=== PATIENT | male | born 1965 | race Caucasian/White ===

== ENCOUNTER 2018-06-17 16:59 | Observation (INO) ==
[2018-06-17] MEDS ORDERED: Naloxone 0.4 MG/ML INJ IVP PRN (19:31)
[2018-06-17] MEDS ORDERED: Acetaminophen 325 MG TABLET PO PRN (19:41)
--- NOTE | 2018-06-17 20:05 | Internal Med History&Physical ---
Date of Encounter: 06/17/18 Time of Encounter: 19:30 Internal Medicine - H&P: HPI Chief complaint: Chest pain and weakness Admitted From: Hospital to Hospital Transfer Plans for Post Hospital Care: Home History of present illness: Mr. LITTLEJOHN is a 53 year old male with hx of paroxysmal atrial fib s/p ablation x2 presented to [facility] ED with lower chest pain and weakness. He was evaluated and transferrred to [place] for further evaluation. Mr Littlejohn said he developed lower R chest discomfort and pain down his trunk and body. He said his boss told him he appeared short of breath. He presented to ED and was found to be in rapid a fib. He spontaneously converted. His daughter stated that he was very weak and had slurred speech at that time and for about an hour after. He reports he could not remember the names of his meds and that is unusual. He feels essentially back to baseline at this time. He did not have associated nausea or diaphoresis. He is compliant with all his meds. He has hx of parox a fib. He has had 2 ablations and had an OK post one of the ablations. He follows with cardiology at [facility] and had a cath with some blockage - daughter says 60%. He also has a loop recorder in place for last 2 years. Past Med Surg Social Fam HX - Past Medical History Source: patient Medical history: atrial fibrillation, hypertension, myocardial infarction Psychiatric history: no psych history - Past Surgical History Additional surgical history: right elbow sx - Social History Smoking Status: Current every day smoker Packs per day: 1 Smokeless Tobacco Status: No Alcohol use: none Drug use: none Current living situation: Home - Independent Activity Level: Independent ambulation - Family History Mother Hx Family Endocrine Disorder: Yes (Diabetes) Grandfather Hx Family Cardiac Disorders: Yes All Systems PM: A 10-system review of systems was performed and is negative for pertinent findings except as documented above in the HPI. - Constitutional Constitutional: fatigue, lethargy - EENT Eyes: no change in vision, no loss of vision Ears: no decreased hearing, no ear pain Nose, mouth and throat: dry mouth, no mouth pain, no sinus pain - Cardiovascular Cardiovascular ROS IM: chest pain, dyspnea, lightheadedness, palpitations, no dyspnea on exertion, no edema, no paroxysmal nocturnal dyspnea - Respiratory Respiratory: cough (Chronic cough), dyspnea, no pain with cough - Gastrointestinal Gastrointestinal: no abdominal pain, no diarrhea, no nausea, no vomiting - Genitourinary Genitourinary ROS male: no dysuria, no nocturia, no urinary hesitancy - Musculoskeletal Musculoskeletal ROS IM: no arthralgias, no muscle cramps, no numbness - Integumentary Integumentary IM: no erythema, no rash - Neurological Neurological ROS: abnormal speech, confusion, weakness (Diffuse), no dizziness, no numbness - Endocrine Endocrine IM: no cold intolerance, no flushing - Hematologic/Lymphatic Hematologic/Lymphatic: no easy bleeding - Allergic/Immunologic Allergic/Immunologic: no tongue swelling, no wheezing - Constitutional Vitals: Temp Pulse Resp BP Pulse Ox 97.7 F 87 16 112/66 95 06/17/18 19:05 06/17/18 19:05 06/17/18 19:05 06/17/18 19:05 06/17/18 19:05 General appearance: Present: A&O X 3, pleasant, answers questions appropriately Exam: See below - Head Head exam: Present: atraumatic, normocephalic - Eye Eye exam: Present: EOMI, PERRL, conjuntiva pink - ENT ENT exam: Present: mucous membranes moist, normal exam - Neck Neck exam general surgery: Present: normal inspection. Absent: nuchal rigidity - Respiratory Respiratory exam: Present: CTAB. Absent: rales, rhonchi, wheezes - Cardiovascular Cardiovascular exam: Present: RRR. Absent: systolic murmur, tachycardia - GI/Abdominal GI/Abdominal exam: Present: normal bowel sounds, soft. Absent: mass, pulsatile mass, tenderness - Extremities Exam Extremities exam: Present: warm. Absent: pedal edema, tenderness - Neurological Exam Neurological exam: Present: alert, oriented X3, no focal deficits - Skin Skin exam: Present: dry, warm - Assessment and plan (1) Chest pain Current Visit: Yes Status: Acute Assessment and plan: Pt with very atypical chest pain. Currently asymptomatic. Daughter is concerned he is having another event. Obtain records of prior cath from [facility]. Serial troponin. Check d dimer I have placed cardiology consult due to family and patient concern. Qualifiers: Chest pain type: other chest pain Qualified Code(s): R07.89 - Other chest pain; R07.8 - Other chest pain (2) Paroxysmal A-fib Current Visit: Yes Status: Chronic Assessment and plan: Pt currently is in sinus rhythm. Will keep on monitor and repeat EKG at this time. (3) Slurred speech Current Visit: Yes Status: Acute Assessment and plan: Pt had weakness and slurred speech with rapid a fib. He does take Xarelto. CT of head ordered tonight. MRI tomorrow due to family concern of CVA. (4) HTN (hypertension) Current Visit: Yes Status: Chronic Assessment and plan: Currently controlled. Continue home meds. Qualifiers: Hypertension type: essential hypertension Qualified Code(s): I10 - Essential (primary) hypertension (5) Tobacco abuse Current Visit: Yes Status: Chronic Assessment and plan: Cessation counselling. He does not want nicotine patch. - Time Spent With Patient Total time spent is greater than 50% in coordination of care (as documented) at patient's floor/unit and/or counseling patient:
[2018-06-18 04:25] LABS: Basophils % 0.5 %; Eosinophils # 0.4 K/mcL (0.0-0.6); Eosinophils % 4.5 %; Hematocrit 34.9 % (37.5-50.1); Immature Granulocytes % 0.2 % (0-4); Lymphocytes % 45.7 %; Mean Corpuscular HGB Conc 31.5 g/dL (31.6-35.5); Mean Corpuscular Hemoglobin 27.2 pg (28.0-33.3); Mean Corpuscular Volume 86.4 fL (83.0-100.0); Mean Platelet Volume 9.8 fL (9.4-12.4); Monocytes # 1.1 K/mcL (0.0-1.3); Monocytes % 12.9 %; Neutrophils # 3.2 K/mcL (1.6-8.9); Platelet Count 333 K/mcL (140-400); Red Blood Count 4.04 M/mcL (4.19-5.50); Red Cell Distribution Width 15.3 % (11.5-14.5); Segmented Neutrophils % 36.2 %
[2018-06-18 04:45] LABS: Chol/HDL Ratio 2.9 (0-4.9)
[2018-06-18 04:46] LABS: BUN/Creatinine Ratio 26 (6-26); Blood Urea Nitrogen 19 mg/dL (6-20); Calcium 9.5 mg/dL (8.6-10.3); Carbon Dioxide 23 mEq/L (23-29); Chloride 106 mEq/L (98-107); Glucose 95 mg/dL (70-105); Osmolality,Calculated 284 (280-300); Potassium 4.4 mEq/L (3.5-5.1); Sodium 136 mEq/L (136-145); eGFR For Non-African Americans > 60 (> 60)
[2018-06-18] MEDS ORDERED: Metoprolol XL (24 HR) Succ 25 MG TAB.ER.24H PO SCH (09:00)
[2018-06-18] MEDS: Aspirin Enteric Coated 81 MG Tablet PO SCH (09:34)
--- NOTE | 2018-06-18 09:42 | Internal Med Progress Note ---
<Ayan Bourne W - Last Filed: 06/18/18 15:13> Hospitalist Progress Note - Encounter Date of Encounter: 06/18/18 Time of Encounter: 09:37 - Subjective Interval History: Patient reports significant improvement today. States he is back to baseline. Denies any chest pain or discomfort. Denies any shortness of breath. States he is no longer weak, no speech deficits no longer has any confusion. CT scan no acute intracranial abnormality. Currently in sinus rhythm. Normal d-dimer and normal troponin. - Exam Vitals: Temp Pulse Resp BP Pulse Ox 97.6 F 87 15 116/68 93 06/18/18 06:49 06/18/18 06:49 06/18/18 04:16 06/18/18 06:49 06/18/18 06:49 Exam: Gen.: NAD, alert and oriented 3 Head: Atraumatic normocephalic Eyes: PERRLA, EOMI Cardio: Regular rate and rhythm positive S1 positive S2, no murmurs rubs or gallops Pulmonary: CTA bilateral no wheezes rales or rhonchi MSK: Normal strength throughout, normal posture Neuro: Cranial nerves II through XII intact no focal deficits - Assessment and Plan (1) Paroxysmal A-fib Status: Chronic Assessment and Plan: - Pt currently is in sinus rhythm. - Metoprolol at home - Cardiology consulted appreciate recs. Plan - Metoprolol increased to 25 mg per cardiology - WILLIAM ordered (2) Chest pain Status: Acute Assessment and Plan: -Pt with atypical chest pain. - Currently asymptomatic. - Troponin mildly elevated at [facility] 0.08 ([facility] cut off 0.056), troponins negative x3 [facility]. - D-Dimer normal - Cardiology consulted appreciate recs (3) HTN (hypertension) Status: Chronic Assessment and Plan: Currently controlled. Metoprolol increased (4) Tobacco abuse Status: Chronic Assessment and Plan: Cessation counselling. He does not want nicotine patch. (5) Slurred speech Status: Resolved Assessment and Plan: Pt had weakness and slurred speech with rapid a fib. He does take Xarelto CT of head found no acute intercranial abnormality MRI no acute abnormalities - Time Spent with Patient Total time spent is greater than 50% in coordination of care (as documented) at patient's floor/unit and/or counseling patient: Internal Medicine: Result - Labs CBC & Chem 7: 06/18/18 03:38 06/18/18 03:38 Labs: Short CBC 06/18/18 Range/Units 03:38 WBC 8.8 (4.3-11.1) K/mcL Hgb 11.0 L (12.9-16.9) g/dL Hct 34.9 L (37.5-50.1) % Plt Count 333 (140-400) K/mcL Neutrophils # 3.2 (1.6-8.9) K/mcL BMP 06/18/18 03:38 Sodium 136 Potassium 4.4 Chloride 106 Carbon Dioxide 23 BUN 19 Creatinine 0.72 Glucose 95 Calcium 9.5 Cardiac Enzymes 06/17/18 06/18/18 06/18/18 Range/Units 20:57 03:38 08:48 Troponin I 0.03 < 0.03 < 0.03 (< 0.04) ng/mL - ABG Interpretation ABG results: PT/INR, D-dimer D-Dimer 258 ng/mLFEU (0-500) 06/17/18 20:57 - Impressions Impressions Head CT 06/18/18 19:38 IMPRESSION: 1.No acute intracranial abnormality. D/ / Carlyle Nix MD / Carlyle Nix MD Interpreting Provider: Carlyle Nix MD Consult Discharge Plan - Plan Instructions: Metoprolol (By mouth), Atrial Fibrillation (DC), How to Stop Smoking (DC) Referrals: NONE,PCP [Primary Care Provider] - (spoke with patient and he has a case management assistant already at [facility] and already has an appointment set up with them and patient stated he is getting a PCP set up at [facility] as well did not want me to help him) Prescriptions: Metoprolol XL (24 HR) Succ [Toprol Xl] 25 mg PO DAILY 30 Days #30 tab.er.24h <Tray Kessler - Last Filed: 06/19/18 14:21> Hospitalist Progress Note - Encounter Date of Encounter: 06/18/18 - Exam Vitals: Temp Pulse Resp BP Pulse Ox 97.5 F L 84 16 119/72 93 06/19/18 08:31 18 08:31 06/19/18 08:31 06/19/18 08:31 06/19/18 08:31 - Assessment and Plan (1) Paroxysmal A-fib Status: Chronic (2) Chest pain Status: Resolved (3) HTN (hypertension) Status: Chronic (4) Tobacco abuse Status: Chronic (5) Slurred speech Status: Resolved - Time Spent with Patient Total time spent is greater than 50% in coordination of care (as documented) at patient's floor/unit and/or counseling patient: 25 - 35 minutes Plan of Care Discussed with: patient Internal Medicine: Result - Labs CBC & Chem 7: 06/18/18 03:38 06/18/18 03:38 - ABG Interpretation ABG results: PT/INR, D-dimer D-Dimer 258 ng/mLFEU (0-500) 06/17/18 20:57 - Impressions Impressions Echocardiogram 06/19/18 07:00 Impressions: LVEF 55%. Normal left ventricular diastolic function. Normal right ventricular structure and function. No significant valvular dysfunction. No pulmonary hypertension. Left Ventricular Wall Motion: Rest Echo Findings All wall segments showed normal motion. Findings: Study Quality * Technically adequate exam. ECG Findings * Normal sinus rhythm. Left Ventricle * LVEF 55%. * Normal LV chamber size, wall thickness and function. * Normal left ventricular diastolic function. Right Ventricle * Normal right ventricular structure and function. Left Atrium * Normal left atrial size. Right Atrium * Normal right atrial size. Mitral Valve * Normal mitral valve structure. * No mitral stenosis. * Trace mitral regurgitation. Aortic Valve * No aortic regurgitation. * Aortic valve not well visualized. * No aortic stenosis. Tricuspid Valve * Tricuspid valve not well visualized. * Trace tricuspid regurgitation. * Estimated RA pressure is 8 mmHg. Pulmonic Valve * Pulmonic valve is not well visualized. * No pulmonic stenosis. * No pulmonic regurgitation. Pulmonary Artery * Pulmonary artery not well visualized. Aorta * Normally sized aortic root. Pericardium * There is no pericardial effusion present. Interatrial Septum * No evidence of PFO by color Doppler. IVC * The IVC is not dilated. * < 50% respiratory change. - VTE Reasons for not Prescribing Prophylaxis: Not indicated-Anticoagulated or INR therapeutic Deep Vein Thrombosis/Pulmonary Embolism Present on Admission: No - Attending Attestation I SAW/EXAMINED AND EVALUATED THE PATIENT WITH THE RESIDENT ON THE DAY OF VISIT. THE CASE WAS DISCUSSED WITH HIM/HER. I AGREE WITH THE FINDINGS/PLAN, DOCUMENTED IN THE RESIDENT'S NOTE. THE DOCUMENT WAS EDITED BY ME TO CORRECT ERRORS AND ADD MISSING DATA. <Ayan Bourne W - Last Filed: 06/18/18 15:13> (2) Chest pain Qualifiers: Chest pain type: other chest pain Qualified Code(s): R07.89 - Other chest pain; R07.8 - Other chest pain (3) HTN (hypertension) Qualifiers: Hypertension type: essential hypertension Qualified Code(s): I10 - Essential (primary) hypertension <Tray Kessler M - Last Filed: 06/19/18 14:21> (2) Chest pain Qualifiers: Chest pain type: other chest pain Qualified Code(s): R07.89 - Other chest pain; R07.8 - Other chest pain (3) HTN (hypertension) Qualifiers: Hypertension type: essential hypertension Qualified Code(s): I10 - Essential (primary) hypertension
--- NOTE | 2018-06-18 10:04 | Cardiology Consult Note ---
Date of Encounter: 06/18/18 Time of Encounter: 08:45 Assessment and Plan (1) Paroxysmal A-fib Current Visit: Yes Status: Chronic Per cardiology" -Known PAF s/p 2 ablations at [facility]. -Has LOOP recorder, interrogated. -On toprol and xarelto at home. -Per patient, was a.fib RVR at [facility]. -ECG from [facility] reviewed with ST, HR 129. -Currently SR, HR controlled. -LOOP recorder reviewed with and Dr.[facility] Escobar, per suspected to be a.fib with RVR. -Will increase toprol to 25mg daily. -Pending TTE, will resume xarelto. (2) Chest pain Current Visit: Yes Status: Acute Per cardiology: -Reported chest pain at work yesterday. -States was non-exertional and unable to describe further due to patient states he was confused. -Denies current chest pain. -ECG with no acute ischemic changes. -Reports recent LHC at [facility], unable to state date-records have been requested per primary service note. -troponin mildly elevated at [facility] 0.08 ([facility] cut off 0.056), troponins negative x3 [facility]. -Will check TTE. -Further recommendations pending TTE and records review. Qualifiers: Chest pain type: other chest pain Qualified Code(s): R07.89 - Other chest pain; R07.8 - Other chest pain (3) Elevated troponin Current Visit: Yes Status: Acute Per cardiology: -Troponin [facility] 0.08 (0.056 cut off), then negative x3 [facility]. -Reported chest pain prior to admission, denies current. -Previous LHC at [facility]-records pending. Reports moderate CAD. -ECG with no acute ischemic changes. -On asa, BB, on statin at home. -Do not suspect NSTEMI, suspect demand ischemia related to a.fib RVR. No cardiac rehab warranted at this time. -Will check TTE. -Further recommendations pending TTE and records review. Discussion w patient/family: The assessment and plan as outlined above was discussed with the patient and/or family members who expressed understanding and agreement. All questions were answered. Thank you for involving us in the care of your patient. Please call with any questions. Discussed and reviewed with . History of Present Illness Consult date: 06/17/18 Requesting physician: Marcus Saunders Consult reason: chest pain, PAF Chief complaint: weakness, confusion, chest pain History of present illness: Mr. Pollock is a 53 year old male with a relevant past medical history of a.fib s /p 2 ablations at [facility], per patient moderate CAD, reported [place], HTN who presented to [facility] with complaints of weakness. Patient states he was at work at he was having difficulty walking. Also states confusion, states was unable to put thoughts together. Patient also reported chest and abdominal pain. Denied exertional chest pain. States spontaneosly resolved. Patient also complained of some "heart racing and fluttering." Patient reports all symptoms have resolved today. States he is back to baseline today. Past Med Surg Social Fam HX - Past Medical History Attestation: Yes The following information was validated with the patient. Source: patient, obtained from family Medical history: atrial fibrillation, hypertension, myocardial infarction Psychiatric history: no psych history - Past Surgical History Additional surgical history: right elbow sx - Social History Smoking Status: Current every day smoker Packs per day: 1 Smokeless Tobacco Status: No Alcohol use: none Drug use: none - Family History Mother Hx Family Endocrine Disorder: Yes (Diabetes) Grandfather Hx Family Cardiac Disorders: Yes Medications and Allergies Aspirin [Adult Aspirin] 81 mg PO DAILY 06/17/18 [History] Atorvastatin [Lipitor] 40 mg PO HS 06/17/18 [History] Rivaroxaban [Xarelto] 20 mg PO DAILY 06/17/18 [History] Isosorbide MONOnitrate (24 HR) [Imdur] 30 mg PO DAILY 06/18/18 [History] Metoprolol XL (24 HR) Succ [Toprol Xl] 12.5 mg PO DAILY 06/18/18 [History] 3 Allergy/AdvReac Type Severity Reaction Status Date / Time No Known Allergies Allergy Verified 06/18/18 00:42 All Systems Review: The remainder of the systems were reviewed and are negative - Constitutional Constitutional: weakness - Cardiovascular Cardiovascular: as per HPI, chest pain at rest, palpitations, rapid heart rate - Gastrointestinal Gastrointestinal: abdominal pain - Neurological Neurological: abnormal speech, focal weakness Physical Examination Vital Signs, Last 4 Hours Temp Pulse BP Pulse Ox 06/18/18 06:49 97.6 F 87 116/68 93 General: Conversant, No Apparent Distress HEENT: Atraumatic, Normocephaly, Mucus Membranes Moist Neck: No JVD, Normal carotid pulses Cardiac: Reg Rate and Rhythm, Normal S1 and S2, No Murmur Lungs: Normal Breath Sounds, No Wheeze, Rales, Rhonchi Neuro: Alert and responsive, No focal deficits noted Abdomen: Soft, Non-Tender Skin: No rashes noted on visualized skin Musculoskeletal: No Chest Wall Tenderness Extremities: No Clubbing, No Cyanosis, No Edema, Normal Pulses Results 06/18/18 03:38 06/18/18 03:38 Lab Results Active Medications Acetaminophen (Tylenol) 650 mg PO Q6HR PRN PRN Reason: Fever Stop: 12/17/18 19:42 Aspirin (Aspirin Ec) 81 mg PO DAILY [facility] Stop: 12/18/18 09:01 Last Admin: 06/18/18 09:34 Dose: 81 mg Metoprolol Succinate (Toprol Xl) 12.5 mg PO DAILY [facility] Stop: 12/18/18 09:01 Last Admin: 06/18/18 09:31 Dose: 12.5 mg Naloxone HCl (Narcan) 0.4 mg IVP Q2MIN PRN PRN Reason: SEE COMMENTS Stop: 12/17/18 19:[address] 06/18/18 19:38 IMPRESSION: 1.No acute intracranial abnormality. D/ / Carlyle Nix MD / Carlyle Nix MD Interpreting Provider: Carlyle Nix MD Laboratory Tests 06/17/18 06/18/18 06/18/18 20:57 03:38 03:38 Hgb 11.0 L Creatinine Troponin I 0.03 < 0.03 06/18/18 06/18/18 03:38 08:48 Hgb Creatinine 0.72 Troponin I < 0.03 - Imaging and Cardiology Echo: pending - EKG Interpretation EKG results cardiology: personally reviewed (ECG from [facility] with ST, early repolarization, HR 129.), other (Telemetry reviewed with average HR previous 12 hours noted to be 92, SR. PVCs, PACs, short episodes of PAF noted.) Consult Discharge Plan - Plan Referrals: NONE,PCP [Primary Care Provider] -
[2018-06-18] MEDS ORDERED: Metoprolol XL (24 HR) Succ 25 MG TAB.ER.24H PO ONE (10:30)
[2018-06-19 08:33] VITALS: BP 119/72
[2018-06-19] MEDS ORDERED: Metoprolol XL (24 HR) Succ 25 MG TAB.ER.24H PO SCH (09:00)
--- NOTE | 2018-06-19 09:25 | Discharge Summary ---
<Ayan Bourne W - Last Filed: 06/19/18 11:35> - NOTES TO OUTPATIENT PROVIDER Notes to Outpatient Provider: Patient presented to the ED found to be in Rpid A fib. Patietn had associated SOB, weakness, Chest pain, and slurred speach. Patient spontaneously converted to sinus rhythm. CT of head and MRI found no acute abnomalities. Troponins slightly elevated at Greg, normal at [facility] Symtopms believed to be associated with A fib. Orders not resulted at time of discharge: Pending orders 06/17/18 19:40 EKG [ECG 12 lead ECG] [ECG] Routine Date of Encounter: 06/19/18 Time of Encounter: 09:21 - Discharge Diagnosis (1) Paroxysmal A-fib Priority: Primary Status: Chronic Assessment and Plan: - Pt currently is in sinus rhythm. - On Metoprolol and Xeralto - Cardiology consulted appreciate recs. Plan - Metoprolol increased to 25 mg per cardiology - WILLIAM pending, per cardiology if there are no abnormalities they have no further recs except to follow with outpatient enrobing machine operator closely. (2) Chest pain Priority: Secondary Status: Resolved Assessment and Plan: -Pt with atypical chest pain. - Currently asymptomatic. - Troponin mildly elevated at Greg 0.08 (Greg cut off 0.056), troponins negative x3 [facility] - D-Dimer normal - Cardiology consulted appreciate recs Qualifiers: Chest pain type: other chest pain Qualified Code(s): R07.89 - Other chest pain; R07.8 - Other chest pain (3) HTN (hypertension) Priority: Secondary Status: Chronic Assessment and Plan: Currently controlled. Metoprolol increased Qualifiers: Hypertension type: essential hypertension Qualified Code(s): I10 - Essential (primary) hypertension (4) Tobacco abuse Priority: Secondary Status: Chronic Assessment and Plan: Cessation counselling. He does not want nicotine patch. (5) Slurred speech Priority: Secondary Status: Resolved Assessment and Plan: Pt had weakness and slurred speech with rapid a fib. He does take Xarelto CT of head found no acute intercranial abnormality MRI no acute abnormalities Hospital course: Mr. Pollock is a 53 year old male who presented from [facility] ED with chest discomfort and pain down his trunk and body, shortness of breath, weakness, and slurred speech. At [facility] patient was noted to be in rapid A. fib. He spontaneously converted to regular sinus rhythm. At that time patient also had some confusion was not able to relieve the nasal medication that he takes which is unusual. He denied any associated nausea or diaphoresis. Patient was complaining of medications. Patient has a history of paroxysmal A. fib. Had 2 ablations and an WA after one of the ablations. He follows with [place] [facility] [place] a Blockage believed to be 60%. Loop recorder was placed 2 years ago. Patient received a head CT which found no acute intracranial abnormality. Patient also received MRI, no acute intracranial abnormality. Serial troponins were taken and were all within normal limits. They were slightly elevated at Greg. Patient had resolution of weakness, slurred speech, shortness of breath , and chest pain during his stay. Symptoms believed to be associated with rapid A. fib. Patient currently on metoprolol on Xarelto. Metoprolol was increased to 25 mg. TTE reviewed with LVEF preserved, no segmental wall motion abnormalities noted. - Time Spent with Patient Total time spent providing and/or coordinating discharge services: - Discharge Medications Prescriptions: Metoprolol XL (24 HR) Succ [Toprol Xl] 25 mg PO DAILY 30 Days #30 tab.er.24h Home Medications: Aspirin [Adult Aspirin] 81 mg PO DAILY 06/17/18 [History] Atorvastatin [Lipitor] 40 mg PO HS 06/17/18 [History] Rivaroxaban [Xarelto] 20 mg PO DAILY 06/17/18 [History] Isosorbide MONOnitrate (24 HR) [Imdur] 30 mg PO DAILY 06/18/18 [History] Metoprolol XL (24 HR) Succ [Toprol Xl] 25 mg PO DAILY 30 Days #30 tab.er.24h [Rx] Allergies/Adverse Reactions: 3 Allergy/AdvReac Type Severity Reaction Status Date / Time No Known Allergies Allergy Verified 06/18/18 00:42 Date of admission: 06/17/18 18:27 Primary care physician: PCP NONE Consults: 06/17/18 19:34 Consult to Physician [CONS] Routine Consulting Provider: David Blanco Reason for Consult: Chest pain. Parox a fib. Call Completed: No Discharging clinician: Ayan Bourne Anticipated date of discharge: 06/19/18 - Constitutional Vitals: Temp Pulse Resp BP Pulse Ox 97.5 F L 84 16 119/72 93 06/19/18 08:31 06/19/18 08:31 06/19/18 08:31 06/19/18 08:31 06/19/18 08:31 General appearance: Present: A&O X 3, pleasant, answers questions appropriately Exam: See below - Head Head exam: Present: atraumatic, normocephalic - Eye Eye exam: Present: PERRL, conjuntiva pink, sclera anicteric Pupils: Present: PERRL - Respiratory Respiratory exam: Present: CTAB. Absent: accessory muscle use, rales, rhonchi, wheezes - Cardiovascular Cardiovascular exam: Present: RRR, +S1, +S2. Absent: diastolic murmur, gallop, rubs, systolic murmur - GI/Abdominal GI/Abdominal exam: Present: normal bowel sounds, soft, no peritoneal signs. Absent: distended, tenderness - Extremities Exam Extremities exam: Present: warm, radial pulses palpable and symmetrical. Absent : calf tenderness, cyanotic, pedal edema - Neurological Exam Neurological exam: Present: CN II-XII intact, oriented X3, no focal deficits. Absent: pronater drift, facial droop, speech deficit - Skin Skin exam: Present: dry, intact - Patient Status Disposition: Home, Self-Care Condition: Good Functional capacity at discharge: independent ambulation Overall status at discharge: patient is back to baseline - Discharge Instructions Instructions: Metoprolol (By mouth), Atrial Fibrillation (DC), How to Stop Smoking (DC) Follow Up With: NONE,PCP [Primary Care Provider] - (spoke with patient and he has a enrobing machine operator already at [facility] and already has an appointment set up with them and patient stated he is getting a PCP set up at [facility] as well did not want me to help him) - Diet and Activity Activity: increase activity as tolerated Diet: low salt diet <Tray Kessler - Last Filed: 06/19/18 13:13> Orders not resulted at time of discharge: Pending orders 06/17/18 19:40 EKG [ECG 12 lead ECG] [ECG] Routine Date of Encounter: 06/19/18 - Discharge Diagnosis (1) Paroxysmal A-fib Status: Chronic (2) Chest pain Status: Resolved Qualifiers: Chest pain type: other chest pain Qualified Code(s): R07.89 - Other chest pain; R07.8 - Other chest pain (3) HTN (hypertension) Status: Chronic Qualifiers: Hypertension type: essential hypertension Qualified Code(s): I10 - Essential (primary) hypertension (4) Tobacco abuse Status: Chronic (5) Slurred speech Status: Resolved Discharge discussed with: patient, nurse - Time Spent with Patient Total time spent providing and/or coordinating discharge services: Greater than 30 minutes (40 minutes) Date of admission: 06/17/18 18:27 Primary care physician: PCP NONE Consults: 06/17/18 19:34 Consult to Physician [CONS] Routine Consulting Provider: David Blanco Reason for Consult: Chest pain. Parox a fib. Call Completed: No - Constitutional Vitals: Temp Pulse Resp BP Pulse Ox 97.5 F L 84 16 119/72 93 06/19/18 08:31 06/19/18 08:31 06/19/18 08:31 06/19/18 08:31 06/19/18 08:31 - Cardiovascular Cardiovascular exam: Present: RRR, +S1, +S2. Absent: diastolic murmur, gallop, rubs, systolic murmur - GI/Abdominal GI/Abdominal exam: Present: normal bowel sounds, soft, no peritoneal signs. Absent: distended, tenderness - Patient Status Functional capacity at discharge: independent ambulation Overall status at discharge: patient is back to baseline - Diet and Activity Activity: increase activity as tolerated Diet: low salt diet - VTE Deep Vein Thrombosis/Pulmonary Embolism Present on Admission: No - Attending Attestation I SAW/EXAMINED AND EVALUATED THE PATIENT WITH THE RESIDENT ON THE DAY OF DISCHARGE. THE CASE WAS DISCUSSED WITH HIM/HER. I AGREE WITH THE FINDINGS/PLAN , DOCUMENTED IN THE RESIDENT'S NOTE. THE DOCUMENT WAS EDITED BY ME TO CORRECT ERRORS AND ADD MISSING DATA.
--- NOTE | 2018-06-19 10:09 | Event Note ---
Date of Encounter: 06/19/18 Time of Encounter: 10:08 - Cardiology Event Note TTE reviewed with LVEF preserved, no segmental wall motion abnormalities noted. Will resume xarelto. Cardiology will sign off and recommend patient follow up with primary director sanitation bureau.
[2018-06-19] MEDS: Aspirin Enteric Coated 81 MG Tablet PO SCH (10:24)
--- NOTE | 2018-06-19 16:53 | Electrocardiograph Report ---
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
[2018-06-19] MEDS ORDERED: *HR* Rivaroxaban 10 MG TABLET PO SCH (17:00)
== END 2018-06-19 13:51 | disposition home or self-care (01) ==
LOC: 2NENU → SUATTDRO 18:27
PROVIDERS: ADMIT Internal Medicine; ATTEND Internal Medicine